=== PATIENT | female | born 1970 | race Caucasian/White ===

== ENCOUNTER 2016-12-01 23:11 | Emergency (ER) | payer OTHER ==
[~2016-12-01] VITALS: Ht 180.3 cm; Wt 145.1 kg
[2016-12-01 23:23] VITALS: BP 139/110
--- NOTE | 2016-12-02 00:47 | NUR ---
PT TAKEN TO BED 8
--- NOTE | 2016-12-02 00:52 | NUR ---
46 Y/O F W/C/O CELLULITIS TO UNDERKNEE L BREAST AND L ARMPIT X 1 WK. DENIES ANY FEVER OR CHILLS. BILATERAL WHEEZES NOTED, PT STATES HAS A HX OF ASTHMA AND RUN OUT INHALER WHILE WATING IN WAITING ROOM TODAY. O2 SAT 90-91. ER MD MADE AWARE.
--- NOTE | 2016-12-02 01:12 | NUR ---
Dr. Perry evaluating patient at bedside.
--- NOTE | 2016-12-02 01:23 | NUR ---
Respiratory Therapist at bedside for respiratory intervention.
[2016-12-02] MEDS ORDERED: AMLO5TAB PO (01:33)
[2016-12-02] MEDS: ALBUTEROL SULFATE/IPRATROPIU 3 ML SOL IH ONE (01:36)
[2016-12-02 01:38] LABS: MEAN CORPUSCULAR HEMOGLOBIN 29 pg (27-31)
[2016-12-02 01:43] LABS: BASOPHILS # (AUTO) 0.5 K/uL (0.00-0.22); BASOPHILS % (AUTO) 3.5 % (0.0-2.0); EOSINOPHILS # (AUTO) 0.2 K/uL (0-0.4); EOSINOPHILS % (AUTO) 1.3 % (0.0-4.0); HEMATOCRIT 43.6 % (36-48); HEMOGLOBIN 14.4 g/dL (12.0-16.0); LYMPHOCYTES # (AUTO) 2.6 K/uL (2.5-16.5); LYMPHOCYTES % (AUTO) 18.1 % (20.5-51.1); MEAN CORPUSCULAR HGB CONC 33 g/dL (33-37); MEAN CORPUSCULAR VOLUME 88 fL (80-94); MONOCYTES # (AUTO) 1.1 K/uL (0.8-1.0); MONOCYTES % (AUTO) 7.5 % (1.7-9.3); NEUTROPHILS # (AUTO) 10.2 K/uL (1.8-7.7); NEUTROPHILS % (AUTO) 69.6 % (42.2-75.2); PLATELET COUNT (AUTO) 294 K/uL (140-450); RED BLOOD CELL COUNT(AUTO) 4.96 MIL/uL (4.20-5.40); RED CELL DISTRIBUTION WIDTH 13.6 % (11.6-13.7); WHITE BLOOD COUNT (AUTO) 14.6 K/uL (4.8-10.8)
[2016-12-02] MEDS ORDERED: CLINDAMYCIN 900 MG/6 ML VIAL IV ONE (01:48)
[2016-12-02 01:49] LABS: ANION GAP 7.1 (8-16); CALCIUM 8.6 mg/dL (8.5-10.1); CARBON DIOXIDE 32.3 mmol/L (21-32); CREATININE 0.9 mg/dL (0.6-1.3); POTASSIUM 3.4 mmol/L (3.5-5.1)
[2016-12-02 01:55] LABS: ALBUMIN 3.4 g/dL (3.4-5.0); TOTAL BILIRUBIN 0.4 mg/dL (0.0-1.0); TOTAL PROTEIN, SERUM 7.5 g/dL (6.4-8.2)
[2016-12-02] MEDS: CLINDAMYCIN 900 MG in DEXTROSE 5% 100 ML IV ONE (01:55)
[2016-12-02] MEDS: NACL 0.9% 1,000 ML IV ONE (01:56)
[2016-12-02] MEDS: fentaNYL 0.05 MG/ML VIAL IVP ONE (01:57)
[2016-12-02] MEDS ORDERED: NEOMYCIN/POLYMYXIN/BACITRACIN 0.9 GM/1 PKT TP ONE (02:04)
[2016-12-02] MEDS: NEOMYCIN/POLYMYXIN/BACITRACIN 0.9 GM/1 PKT TP ONE (02:05)
[2016-12-02 02:13] LABS: INR 1.1 (0.8-1.2)
[2016-12-02 02:14] LABS: PARTIAL THROMBOPLASTIN TIME 32.8 secs (22-35.6)
--- NOTE | 2016-12-02 02:31 | NUR ---
PT ASLEEP, CURRENTLY RECEIVING IV FLUIDS AND ANTIBIOTICS. NO S/S OF DISTRESS NOTED AT THE MOMENT.
[2016-12-02 03:29] VITALS: BP 130/82
--- NOTE | 2016-12-02 03:29 | NUR ---
Patient discharged with v/s stable. Written and verbal after care instructions given and explained. Patient alert, oriented and verbalized understanding of instructions. Ambulatory with steady gait. All questions addressed prior to discharge. ID band removed. Patient advised to follow up with PMD IN 2 DAYS OR RETURN TO ER IF CONDITION WORSENS. Rx of ALBUTEROL, KEFLEX, TRAMADOL, MOTRIN, AND BACTRIM given. Patient educated on indication of medication including possible reaction and side effects. Opportunity to ask questions provided and answered.
== END 2016-12-02 03:29 | disposition home or self-care (01) ==
LOC: MED 23:11
DX: N61.0 Mastitis without abscess (principal); J45.901 Unspecified asthma with (acute) exacerbation
CPT/HCPCS: 36415; 80053; 85025; 85610; 85730; 87070; 94640; 96365; 96375; 99285; J3010; J3490; J7030; J7620